=== PATIENT | male | born 1950 | race Two or more races ===

== ENCOUNTER 2022-01-07 09:11 | Outpatient (CLI) | payer OTHER ==
[~2022-01-07 09:11] MED LIST: COZAAR100 MG
== END 2022-01-07 09:22 | disposition home or self-care (01) ==
LOC: LAB 09:11
PROVIDERS: ATTEND Orthopaedic Surgery
DX: D64.9 Anemia, unspecified (principal); E88.9 Metabolic disorder, unspecified; D68.8 Other specified coagulation defects; N39.0 Urinary tract infection, site not specified; A49.02 Methicillin resistant Staphylococcus aureus infection, unspecified site; Z76.89 Persons encountering health services in other specified circumstances; I10 Essential (primary) hypertension; I49.9 Cardiac arrhythmia, unspecified